=== PATIENT | female | born 1960 | race Caucasian/White ===

== ENCOUNTER 2020-01-16 00:11 | Day surgery (SDC) | payer BC, SELFPAY ==
[2020-01-12 10:51] VITALS: BMI 20.1
--- NOTE | 2020-01-16 06:40 | P.HP_ITS ---
History of Present Illness History of Present Illness Consent: Risks, benefits, and alternatives have been discussed and questions answered. Patient agrees to proceed with procedure. Chief complaint: Sccreening, hx of polyps Narrative: Amee Anderson is a 59 year old W female Referred for screening colonoscopy secondary to history of colonic polyps. Last colonoscopy was 4 years ago which time a cecal adenomatous polyp was removed. Patient is asymptomatic. There is no family history of colon cancer. [facility] Past Medical History Medical History (Updated 01/16/20 @ 06:42 by Pan Herrera MD) History of concussion History of migraine Surgical History Surgical History (Updated 01/16/20 @ 06:43 by Pan Herrera MD) History of cervical discectomy Status post cholecystectomy Status post dilatation and curettage Meds Home Medications and Allergies Home Medications Medication Instructions Recorded Confirmed Type alprazolam 0.25 mg PO BID PRN 01/12/20 01/16/20 History amlodipine 2.5 mg PO DAILY 01/12/20 01/16/20 History calcium carbonate [Calcium 600] 600 mg PO DAILY 01/12/20 01/16/20 History cholecalciferol (vitamin D3) 5,000 unit PO DAILY 01/12/20 01/16/20 History [Vitamin D3] conjugated estrogens [Premarin] 0.625 mg VAGINAL 3XW 01/12/20 01/16/20 History esomeprazole magnesium [Nexium] 20 mg PO DAILY 01/12/20 01/16/20 History estrogens-methyltestosterone 1 tablet PO DAILY 01/12/20 01/16/20 History loratadine 10 mg PO DAILY 01/12/20 01/16/20 History triamcinolone acetonide [Nasacort] 2 spray INTRANASAL DAILY 01/12/20 01/16/20 History vitamin B complex 1 cap PO DAILY 01/12/20 01/16/20 History Allergies Allergy/AdvReac Type Severity Reaction Status Date / Time adhesive Allergy Severe INFECTION Verified 01/16/20 06:24 FROM GLUE cefdinir [From Omnicef] Allergy Intermediate Abdominal Verified 01/16/20 06:24 Pain Cephalosporins AdvReac Intermediate SEVERE Verified 01/16/20 06:24 DIARRHEA codeine AdvReac Intermediate N&V Verified 01/16/20 06:24 erythromycin base AdvReac Intermediate STOMACH Verified 01/16/20 06:24 UPSET Exam Const: Orientation/consciousness: patient oriented x3 Resp: Auscultation: clear to auscultation bilaterally Cardio: Rate: regular rate Rhythm: regular rhythm Heart sounds: no murmurs GI: GI Palp: Yes Soft to palpation, No Tenderness to palpation present (GI), Yes No hepatosplenomegaly present and No Palpable mass present Auscultation: normal bowel sounds Neuro: General: patient oriented x3 and no focal motor deficits Extrem: General: no pedal edema Assessment and Plan Additional Plan screening colonoscopy secondary history of colonic polyps
[2020-01-16] MEDS: LACTATED RINGERS 1,000 ML 150 ML IV CONT (06:41)
--- NOTE | 2020-01-16 07:12 | WPDANESEPPF ---
Anes - Initial Pre Proc Eval Procedure: Operation Date: 01/16/20 07:30 Proposed Procedures p Screening Colonoscopy - Pan Herrera MD Date/Time: 01/16/20 07:12 Surgeon: Pan Herrera MD Pre Op Diagnosis: Sccreening, hx of polyps Patient Data Age: 59 Gender: F Height: 1.57 m Weight: 51 kg Allergies Allergy/AdvReac Type Severity Reaction Status Date / Time adhesive Allergy Severe INFECTION Verified 01/16/20 06:24 FROM GLUE cefdinir [From Omnicef] Allergy Intermediate Abdominal Verified 01/16/20 06:24 Pain Cephalosporins AdvReac Intermediate SEVERE Verified 01/16/20 06:24 DIARRHEA codeine AdvReac Intermediate N&V Verified 01/16/20 06:24 erythromycin base AdvReac Intermediate STOMACH Verified 01/16/20 06:24 UPSET Home Medications Medication Instructions Recorded Confirmed Type alprazolam 0.25 mg PO BID PRN 01/12/20 01/16/20 History amlodipine 2.5 mg PO DAILY 01/12/20 01/16/20 History calcium carbonate [Calcium 600] 600 mg PO DAILY 01/12/20 01/16/20 History cholecalciferol (vitamin D3) 5,000 unit PO DAILY 01/12/20 01/16/20 History [Vitamin D3] conjugated estrogens [Premarin] 0.625 mg VAGINAL 3XW 01/12/20 01/16/20 History esomeprazole magnesium [Nexium] 20 mg PO DAILY 01/12/20 01/16/20 History estrogens-methyltestosterone 1 tablet PO DAILY 01/12/20 01/16/20 History loratadine 10 mg PO DAILY 01/12/20 01/16/20 History triamcinolone acetonide [Nasacort] 2 spray INTRANASAL DAILY 01/12/20 01/16/20 History vitamin B complex 1 cap PO DAILY 01/12/20 01/16/20 History Patient hx anesthesia problems: none Family hx anesthesia problems: none PMFSH Past Medical History Medical History (Updated 01/16/20 @ 07:13 by Bhavik Maier MD) Anxiety Gastroesophageal reflux disease History of concussion History of migraine HTN (hypertension) Surgical History Surgical History (Updated 01/16/20 @ 06:43 by Pan Herrera MD) History of cervical discectomy Status post cholecystectomy Status post dilatation and curettage Anes - Eval Final PreProcedure Day of Procedure 01/16/20 07:12 Patient weight: normal Heart: regular rate and rhythm Lungs: clear to auscultation and normal air movement Airway: Mallampati scale class II Neurological: alert and oriented Last oral intake: >/= 8 hours ASA classification: II Emergent: no Anesthetic plan: proceed Anesthesia type and monitoring: general GIVS Informed Consent: The patient's anesthetic plan and its attendant risks and benefits were discussed with the patient/family/POA. Questions were solicited and answers provided to the satisfaction of the patient/family/POA.
[2020-01-16 07:47] VITALS: BP 87/53; PULSE 73; RESP 30; O2SAT 99
[2020-01-16 07:57] VITALS: BP 86/58; PULSE 66; RESP 20; O2SAT 98
[2020-01-16 08:07] VITALS: BP 130/88; PULSE 71; RESP 21; O2SAT 100
== END 2020-01-16 08:33 | disposition home or self-care (01) ==
PROVIDERS: PCP Internal Medicine; Visit Provider Internal Medicine Gastroenterology
PROC: 0DJD8ZZ Inspection of Lower Intestinal Tract, Via Natural or Artificial Opening Endoscopic (ICD-10-PCS; CPT 45378; principal; 2020-01-16 07:30)
DX: Z12.11 Encounter for screening for malignant neoplasm of colon (principal); K63.5 Polyp of colon; I10 Essential (primary) hypertension; K21.9 Gastro-esophageal reflux disease without esophagitis; F41.9 Anxiety disorder, unspecified
CPT/HCPCS: 45380; 88305; J2704; J7120

== ENCOUNTER 2020-04-01 15:01 | Outpatient (CLI) | payer BC, SELFPAY ==
--- NOTE | ~2020-04-01 | MM_ITS ---
EXAMINATION: MM screening susy BI w quique HISTORY: Screening mammogram TECHNIQUE: Craniocaudal and mediolateral oblique 3-D tomosynthesis images were obtained and synthetic 2-D images were generated. Bilateral rotated lateral CC views. CAD analysis was submitted and interp reted. COMPARISON: 02/27/2019, 01/21/2018, 12/07/2016 bilateral digital screening mammogram examinations BREAST PARENCHYMAL COMPOSITION: The breasts are heterogeneously dense, which may obscure small masses . FINDINGS: There is no evidence of suspicious mass, calcification, or architectural distortion to sugg est malignancy in either breast. There has been no suspicious interval change. IMPRESSION: 1. No mammographic evidence of malignancy. 2. Recommend routine screening mammography in one year. BI-RADS Category 1: Negative Reviewed, dictated and finalized at location A.
== END 2020-04-01 15:02 | disposition home or self-care (01) ==
PROVIDERS: PCP Internal Medicine; Visit Provider Obstetrics & Gynecology
DX: Z12.31 Encounter for screening mammogram for malignant neoplasm of breast (principal)
CPT/HCPCS: 77063; 77067

== ENCOUNTER 2021-01-18 13:59 | Outpatient (CLI) | payer BC, SELFPAY | END 2021-01-18 14:00 | disposition home or self-care (01) | LOC: ANHCOVIDVC 14:00 | PROVIDERS: PCP Internal Medicine | DX: Z23 Encounter for immunization (principal) | CPT/HCPCS: 0001A; 91300 ==

== ENCOUNTER 2021-02-08 13:58 | Outpatient (CLI) | payer BC, SELFPAY | END 2021-02-08 13:59 | disposition home or self-care (01) | LOC: ANHCOVIDVC 13:58 | PROVIDERS: PCP Internal Medicine | DX: Z23 Encounter for immunization (principal) | CPT/HCPCS: 0002A; 91300 ==

== ENCOUNTER 2021-04-04 14:25 | Outpatient (CLI) | payer BC, SELFPAY ==
--- NOTE | ~2021-04-04 | MM_ITS ---
EXAMINATION: MM screening susy BI w quique HISTORY: Screening mammogram TECHNIQUE: Craniocaudal and mediolateral oblique 3-D tomosynthesis images were obtained and synthetic 2-D images were generated. CAD analysis was submitted and interpreted. COMPARISON: 04/01/2020, 02/17/2019, 01/21/2018 bilateral digital screening mammogram examinations BREAST PARENCHYMAL COMPOSITION: The breasts are heterogeneously dense, which may obscure small masses . FINDINGS: There is no evidence of suspicious mass, calcification, or architectural distortion to sugg est malignancy in either breast. There has been no suspicious interval change. IMPRESSION: 1. No mammographic evidence of malignancy. 2. Recommend routine screening mammography in one year. BI-RADS Category 1: Negative Reviewed, dictated and finalized at location A.
== END 2021-04-04 14:26 | disposition home or self-care (01) ==
LOC: ANHIMG 14:28
PROVIDERS: PCP Internal Medicine; Visit Provider Obstetrics & Gynecology
DX: Z12.31 Encounter for screening mammogram for malignant neoplasm of breast (principal)
CPT/HCPCS: 77063; 77067

== ENCOUNTER → 2021-05-10 06:33 | Outpatient (CLI) | payer BC, SELFPAY ==
[2021-05-10 17:12] LABS: SARS-CoV-2 RNA PCR Negative
== END ==
PROVIDERS: PCP Internal Medicine; Visit Provider Internal Medicine
DX: R68.89 Other general symptoms and signs (principal); Z20.822 Contact with and (suspected) exposure to COVID-19
CPT/HCPCS: C9803; U0003; U0005

== ENCOUNTER 2022-04-06 11:47 | Outpatient (CLI) | payer BC, SELFPAY ==
--- NOTE | ~2022-04-06 | MM_ITS ---
EXAMINATION: MM screening susy BI w quique HISTORY: Screening mammogram TECHNIQUE: Craniocaudal and mediolateral oblique 3-D tomosynthesis images were obtained and synthetic 2-D images were generated. CAD analysis was submitted and interpreted. COMPARISON: 03/31/2021, 04/01/2020, 02/17/2019 bilateral screening mammogram examinations BREAST PARENCHYMAL COMPOSITION: The breasts are heterogeneously dense, which may obscure small masses . FINDINGS: There is no evidence of suspicious mass, calcification, or architectural distortion to sugg est malignancy in either breast. There has been no suspicious interval change. IMPRESSION: 1. No mammographic evidence of malignancy. 2. Recommend routine screening mammography in one year. BI-RADS Category 1: Negative Reviewed, dictated and finalized at location A.
== END 2022-04-06 11:48 | disposition home or self-care (01) ==
PROVIDERS: PCP Internal Medicine; Visit Provider Obstetrics & Gynecology
DX: Z12.31 Encounter for screening mammogram for malignant neoplasm of breast (principal)
CPT/HCPCS: 77063; 77067

== ENCOUNTER 2023-04-12 13:58 | Outpatient (CLI) | payer BC, SELFPAY ==
--- NOTE | ~2023-04-12 | MM_ITS ---
EXAMINATION: MM screening susy BI w quique HISTORY: Screening mammogram TECHNIQUE: Craniocaudal and mediolateral oblique 3-D tomosynthesis images were obtained and synthetic 2-D images were generated. Bilateral rotated lateral CC views. CAD analysis was submitted and interp reted. COMPARISON: 04/06/2022, 03/31/2021, 04/01/2020 bilateral screening mammogram examinations BREAST PARENCHYMAL COMPOSITION: The breasts are heterogeneously dense, which may obscure small masses . FINDINGS: There is no evidence of suspicious mass, calcification, or architectural distortion to sugg est malignancy in either breast. There has been no suspicious interval change. IMPRESSION: 1. No mammographic evidence of malignancy. 2. Recommend routine screening mammography in one year. BI-RADS Category 1: Negative Reviewed, dictated and finalized at location A.
== END 2023-04-12 13:59 | disposition home or self-care (01) ==
PROVIDERS: PCP Internal Medicine; Visit Provider Obstetrics & Gynecology
DX: Z12.31 Encounter for screening mammogram for malignant neoplasm of breast (principal)
CPT/HCPCS: 77063; 77067

== ENCOUNTER 2024-04-29 14:14 | Outpatient (CLI) | payer BC, SELFPAY ==
--- NOTE | ~2024-04-29 | MM_ITS ---
EXAMINATION: MM screening susy BI w quique HISTORY: Screening TECHNIQUE: Craniocaudal and mediolateral oblique 3-D tomosynthesis images were obtained and synthetic 2-D images were generated. CAD analysis was submitted and interpreted. COMPARISON: Comparison to multiple prior studies sequentially, with oldest reviewed study dated 01/21. BREAST PARENCHYMAL COMPOSITION: Dense: The breasts are extremely dense, which lowers the sensitivity of mammography. FINDINGS: There is no evidence of suspicious mass, calcification, or architectural distortion to sugg est malignancy in either breast. There has been no suspicious interval change. IMPRESSION: 1. No mammographic evidence of malignancy. 2. Recommend routine screening mammography in one year. BI-RADS Category 1: Negative Reviewed, dictated and finalized at location B.
== END 2024-04-29 14:15 ==
LOC: MICIMG 14:15
PROVIDERS: PCP Internal Medicine; Visit Provider Obstetrics & Gynecology
DX: Z12.31 Encounter for screening mammogram for malignant neoplasm of breast (principal)
CPT/HCPCS: 77063; 77067

== ENCOUNTER 2025-06-08 14:40 | Outpatient (CLI) | payer BC, SELFPAY ==
--- NOTE | ~2025-06-08 | MM_ITS ---
EXAMINATION: MM screening susy BI w quique HISTORY: Screening TECHNIQUE: Craniocaudal and mediolateral oblique 3-D tomosynthesis images were obtained and synthetic 2-D images were generated. CAD analysis was submitted and interpreted. COMPARISON: Comparison to multiple prior studies sequentially, with oldest reviewed study dated 06/2019. BREAST PARENCHYMAL COMPOSITION: Dense: The breasts are heterogeneously dense, which may obscure small masses FINDINGS: There is no evidence of suspicious mass, calcification, or architectural distortion to sugg est malignancy in either breast. There has been no suspicious interval change. IMPRESSION: 1. No mammographic evidence of malignancy. 2. Recommend routine screening mammography in one year. BI-RADS Category 1: Negative Reviewed, dictated and finalized at location B.
--- OUTSIDE RECORDS SUMMARY | 2025-06-08 14:42 | XMS_ITS | Encounter Summary ---
Author Organization [facility] Healthcare Address [address] [place] [address] Care Team Providers Care Zoning Administrator Name Role Phone Iban Mandujano MD Primary Care Provider [phone] Encounter Details Date Type Department Care Team (Late st Contact Info) Description 12/21/2023 Telephone [facility] [place] [facility] [address] [facility] [address] [place] [address] Tiffany Triana MD [address] [place] [address] Social History Tobacco Use Types Packs/Day Years Used Date Smoking Tobacco: Never Smokeless Tobacco: Never Alcohol Use Standard Drinks/Week Comments Not Currently 0 (1 standard drink = 0.6 oz pur e alcohol) [facility] Utilities Answer Date Recorded In the past 12 months has [employer], [employer], oil, or water [employer] threatened to shut off services in your home? No 11/07/2023 Social Connection and Isolat ion Panel [NHANES] Answer Date Recorded In a typical week, how many times do you talk on the phone with family, friends, or neighbors? More than three times a week 11/07/2023 How often do you get togethe r with friends or relatives? More than three times a week 11/07/2023 How often do you attend chur or shinto services? Never 11/07/2023 Do you belong to any clubs o r organizations such as mosque groups, unions, fraternal or athletic groups, or school groups? No 11/07/2023 How often do you attend meet ings of the clubs or organizations you belong to? Never 11/07/2023 Are you , , di vorced, , never , or living with a partner? 11/07/2023 AUDIT-C Answer Date Recorded Q1: How often do you have a drink containing alc ohol? Monthly or less 09/02/2021 Q2: How many drinks containi ng alcohol do you have on a typical day when you are drinking? 1 or 2 09/02/2021 Frequency of Binge Drinking Not on file 08/13 Overall Financial Resource Strain (CARDIA) Answe r Date Recorded How hard is it for you to pa y for the very basics like food, housing, medical care, and heating? Not very hard 11/07/2023 Hunger Vital Sign Answer Date Recorded Within the past 12 months, y ou worried that your food would run out before you got the money to buy more. Never true 11/07/20 23 Within the past 12 months, t he food you bought just didn't last and you didn't have money to get more. Never true 11/07/2023 PRAPARE - Transportation Answer Date Re corded In the past 12 months, has l ack of transportation kept you from medical appointments or from getting medications? No 10/13 In the past 12 months, has l ack of transportation kept you from meetings, work, or from getting things needed for daily living? No 11/07/2023 Housing Stability Vital Sign Answer Royer e Recorded In the last 12 months, was t here a time when you were not able to pay the mortgage or rent on time? No 11/07/2023 In the last 12 months, how many places have you lived? 1 11/07/2023 In the last 12 months, was t here a time when you did not have a steady place to sleep or slept in a correction (including now)? No 11/07/2023 Personal Safety Answer Date Recorded Have you ever been in or are you currently in a harmful physical or emotional relationship or is someone making you feel afraid or unsafe? 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 Author CCM Chronic Pain Care Plan Chronic Care Management Worsening( 11:22 AM STONE DRILLER HELPER) Dionna Rodgers RN Note: Problem: Chronic Pain Goals: 1. Minimize further functional decline 2. Maximize quality of life 3. Control pain Strategies: - Activity/exercise program recommendation - Conservative stepwise pain medicine strategy with multi-disciplinary approach - Recommend healthy lifestyle strategies and compensatory methods as needed documented as of this encounter Visit Diagnoses Not on filedocumented in this encounter Care Teams Zoning Administrator Relationship Specialty Start Date End Date Iban Mandujano MD PCP - General 01/04/17 documented as of this encounter
--- OUTSIDE RECORDS SUMMARY | 2025-06-08 14:42 | XMS_ITS | Clinical Summary ---
Author Organization [facility] Address [address] [place] [address] Care Team Providers Care Supervisor Electronics Testing Name Role Phone Iban Mandujano MD Primary Care Provider [phone] Source Comments [facility] Affiliates and Associated Physician Practices is amultiple site organization consisting of ambulatory clinics and hospital sitesin [place], [place], [place] and [place]. This disclosure is being madepursuant to the Care Everywhere program and may not contain all information available regarding this patient. Last updated 18.[facility] Social History Tobacco Use Types Packs/Day Years Used Date Smoking Tobacco: Never Assessed Comments Unknown Sex and Gender Information Value Date Recorded Sex Assigned at Not on file Legal Sex Female 2:06 PM CDT Gender Identity Not on file Sexual Orientation Not on file Plan of Treatment Health Maintenance Due Date Last Done Comments COLOGUARD (AGES 45-75) - COL ON CA SCREENING 1962 COLON MONITORING 1962 COLONOSCOPY - COLON CA SCREENING 1962 CT COLONOGRAPHY - COLON CA SCREENING 1962 Colorectal Cancer Screening 1962 FIT - COLON CA SCREENING 1962 FLEX SIG - COLON CA SCREENING 1962 LIPID TESTING 1962 MAMMOGRAM 1962 HIV SCREENING 1977 HEPATITIS C SCREENING 05/17/1980 DTAP/TDAP/TD VACCINES (1 - Tdap) 1981 PAP SMEAR 1983 PNEUMOCOCCAL VACCINE 50+ (1 of 1 - PCV) 2012 ZOSTER VACCINE (1 of 2) 2012 COVID-19 VACCINE (1 - 2023-2 5 season) 2024 DEPRESSION SCREENING 11/12/2024 INFLUENZA VACCINE (#1) 2025 Respiratory Syncytial Virus (RSV) Vaccine Pt: or over 60 yrs (1 - 1-dose 75+ series) 2037 HEPATITIS B VACCINE Aged Out No longe r eligible based on patient's age to complete this topic HIB VACCINE Aged Out No longer eligi ble based on patient's age to complete this topic HPV VACCINE Aged Out No longer eligi ble based on patient's age to complete this topic MENINGOCOCCAL (Group B) VACC INE SHARED DECISION-MAKING Aged Out No longer eligibl e based on patient's age to complete this topic MENINGOCOCCAL GROUPS A/C/Y/W VACCINE Aged Out No longer eligible b ased on patient's age to complete this topic Insurance [facility] Address: [facility] [id number] [place] [phone] [employer] Care Teams Supervisor Electronics Testing Relationship Specialty Start Date End Date Iban Mandujano MD PCP - General 01/19/20
--- OUTSIDE RECORDS SUMMARY | 2025-06-08 14:42 | XMS_ITS | Referral Summary ---
Author Organization [facility] al Address [address] [place] [address] Care Team Providers Care Lathe Winder Name Role Phone Iban Mandujano MD Primary Care Provider [phone] Encounters Date Type Department Care Team Description 05/29/2025 Orders Only [facility] [address] [place] [address] [address] [facility] [address] [place] [id number] Iban Mandujano MD 03/24/2025 1:00 PM CDT Office Visit [facility] [address] [facility] [address] [place] [address] Pola Garcia DO Lumbar pain (Primary Dx); Spondylosis of lumbar spine; Intervertebral disc disorder with radiculopathy of lumbar region 03/21/2025 8:07 AM CDT - 03/21/2025 11:59 PM CDT Hospital Encounter [facility] [address] [place] [phone] Spondylosis of lumbar spine; Lumbar pain; Intervertebral disc disorder with radiculopathy of lumbar region Discharge Disposition: Discharge to home or self care 03/21/2025 9:16 AM CDT - 03/21/2025 11:59 PM CDT Hospital Encounter [facility] [address] [place] [phone] Spondylosis of lumbar spine; Lumbar pain; Intervertebral disc disorder with radiculopathy of lumbar region Discharge Disposition: Discharge to home or self care 03/20/2025 Orders Only [facility] [address] [facility] [address] [place] [address] Pola Garcia DO Spondylosis of lumbar spine (Primary Dx); Lumbar pain; Intervertebral disc disorder with radiculopathy of lumbar region from Last 3 Months Allergies Active Allergy Reactions Criticality Noted Date Comments Adhesive Other (See comments) Low 05/11/2021 Resulted in an infection Adhesive glue Codeine Nausea & Vomiting Low 07/26/2010 Erythromycin Stomach upset Low 07/26/2010 Escitalopram Oxalate Anxiety Low 09/29/2014 Cefdinir Stomach upset Low 07/26/[address] (NexIUM) 20 mg capsuleIndications :Treatment of Non-Bleeding Gastric Disorder Take 1 capsule (20 mg total) by mouth daily before breakfast 10/05/20 14 Active loratadine (CLARITIN) 10 mg tabletIndications: Allergic Rhinitis Take 1 tablet (10 mg total) by mouth every morning Active PREMARIN vaginal creamIndications:A trophy of Vulva Insert 1 g into the vagina Three times weekly 04/22/20 18 Active triamcinolone (NASACORT) 55 mcg nasal inhalerIndications :Allergic Rhinitis Administer 1 spray into each nostril early education teacher before breakfast Active Saccharomyces boulardii (PROBIOTIC, S.BOULARDII,) 250 mg capsuleIndications :supplement Take 1 capsule (250 mg total) by mouth 3 (three) times a day Active acetaminophen (TYLENOL EXTRA STRENGTH) 500 mg tablet Take 2 tablets (1,000 mg total) by mouth as needed for pain Active estrogens-methylTE STOSTERone (EEMT,COVARYX) 1.25-2.5 mg per tabletIndications: Vasomotor Symptoms associated with Menopause Take 1 tablet by mouth nightly 1 11/28/19 19 Active desoximetasone (TOPICORT) 0.05 % cream Apply topically 2 (two) times a day as needed for irritation 60 g 2 09/11/20 22 Active vitamin B complex capsuleIndications :Vitamin Deficiency Prevention Take 1 capsule by mouth every morning Active cholecalciferol (VITAMIN D-3) 5,000 unit capsuleIndications :supplement Take 1 capsule (5,000 Units total) by mouth every morning Active calcium carbonate (TUMS) 500 mg (200 mg elemental calcium) chewable tabletIndications: Post-Menopausal Osteoporosis Prevention,hypocal cemia Take 2 tablet/chew tab (1,000 mg total) by mouth 2 (two) times a day Active ascorbic acid (ascorbic acid with stephen hips) 500 mg tablet,chewableInd ications:supplemen t Take 1 tablet/chew tab (500 mg total) by mouth early education teacher before breakfast Active traMADoL (ULTRAM) 50 mg tablet Take 1 tablet (50 mg total) by mouth every 6 (six) hours 28 tablet 1 06/03/20 24 Active Additional Information Patient not taking.Reported on 03/24/2025 ondansetron ODT (ZOFRAN-ODT) 4 mg disintegrating tablet Take 1 tablet (4 mg total) by mouth every 8 (eight) hours as needed for nausea or vomiting 20 tablet 1 06/03/20 24 Active senna-docusate (PERICOLACE) 8.6-50 mg Take 1 tablet by mouth daily 30 tablet 2 06/03/20 24 Active triamcinolone (KENALOG) 0.1 % ointment APPLY TO CHEST TWICE DAILY FOR 14 DAYS THEN NEEDED. 07/29/20 24 Active amLODIPine (NORVASC) 2.5 mg tablet TAKE 1 TABLET BY MOUTH EVERY DAY 90 tablet 2 11/06/20 24 Active ALPRAZolam (XANAX) 0.25 mg tablet TAKE 1 TABLET BY MOUTH EVERY 8 HOURS NEEDED FOR ANXIETY 30 tablet 1 04/28/20 25 Active Active Problems Problem Noted Date Diagnosed Date Weight loss 10/07/2024 History of colon polyps 09/03/2024 Encounter for screening colonoscopy 09/03/2024 Lumbar spondylolysis 06/03/2024 Intervertebral disc disorder with radiculopathy of lumbar region 06/03/2024 Sensorineural hearing loss (SNHL) of both ears 0 05/23/2024 Bilateral impacted cerumen 05/23/2024 Lumbar pain 11/05/2023 HTN (hypertension) 11/05/2023 Assessment & Plan (02/11/2025 12:38 PM CDT): Bp is at target, will continue medication for target directed therapy GERD (gastroesophageal reflux disease) 3 Assessment & Plan (02/11/2025 12:39 PM CDT): stable Back pain with radiculopathy 11/05/2023 Acute bronchitis 05/11/2021 Assessment & Plan (05/13/2021 8:37 AM CDT): Advised to take medication (amoxicillin) as directed and informed can use Coricidin as directed as needed for symptom relief. Instructed to increase clear liquids, rest, and vitamin C in diet. Advised to sleep with head elevated and use a cool mist vaporizer and Vicks VapoRub at bedtime for cough and congestion. Recommended follow-up with PCP if symptoms worsen, don't improve, or new symptoms develop. Viral upper respiratory tract infection 05/11/20 21 Assessment & Plan (05/13/2021 8:38 AM CDT): Informed can use Coricidin as directed as needed for symptom relief. Instructed to increase clear liquids, rest, and vitamin C in diet. Advised to sleep with head elevated and use a cool mist vaporizer and Vicks VapoRub at bedtime for cough and congestion. Recommended follow-up with PCP if symptoms worsen, don't improve, or new symptoms develop. Thumb pain, right 05/11/2021 Assessment & Plan (05/13/2021 8:37 AM CDT): Ordered right hand xray. Advised can use Tylenol or ibuprofen as directed as needed or can alternative between the two for pain. Recommended follow-up with PCP if symptoms worsen, don't improve, or new symptoms develop. Encounter for colonoscopy following colon polyp removal 06/11/2020 Overview (06/11/2020): Added automatically from request for surgery [id number] Postconcussion syndrome 03/01/2020 Late effect of head trauma, cognitive deficits 0 03/01/2020 Benign colon polyp 01/21/2020 Overview (01/21/2020): Added automatically from request for surgery [id number] Spondylosis of lumbar spine 05/23/2018 Skin neoplasm 12/11/2017 Osteoarthritis of cervical spine 02/19/2017 Cervical pain (neck) 02/14/2017 Assessment & Plan (02/11/2025 12:38 PM CDT): To see neurosurgery. 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 09/28/2015 BMI 20.0-20.9, adult 10/05/2014 Shortness of breath 09/15/2014 Dizziness 09/15/2014 Chest pain 09/15/2014 Immunizations Immunization Administration Dates Next Due COVID-19 mRNA (BIScience) 0.3 m L (30 mcg) vaccine (12 years and up) 10/13/2023 ZOSTER Recombinant 09/24/2022,05/27/2022 Social History Tobacco Use Types Packs/Day Years Used Date Smoking Tobacco: Never Smokeless Tobacco: Never Tobacco Cessation:Counseling Given: Not Answered Alcohol Use Standard Drinks/Week Comments Not Currently 0 (1 standard drink = 0.6 oz pur e alcohol) [employer] Answer Date Recorded In the past 12 months has [employer] electric, gas, oil, or water company threatened to shut off services in your [...] 11/07/2023 How often do you attend chur ch or moravian services? Never 11/07/2023 Do you belong to any clubs o r organizations such as episcopal groups, unions, fraternal or athletic groups, or school groups? No 11/07/2023 How often do you attend meet ings of the clubs or organizations you belong to? Never 11/07/2023 Are you , , di vorced, , never , or living with a partner? 11/07/2023 AUDIT-C Answer Date Recorded Q1: How often do you have a drink containing alc ohol? Monthly or less 12/11/2024 Q2: How many drinks containi ng alcohol do you have on a typical day when you are drinking? 1 or 2 12/11/2024 Q3: How often do you have si x or more drinks on one occasion? Never 12/11/2024 Overall Financial Resource Strain (CARDIA) Answe r [...] place to sleep or slept in a senior care (including now)? No 11/07/2023 Personal Safety Answer Date Recorded Have you ever been in or are you currently in a harmful physical or emotional relationship or is someone making you feel afraid or unsafe? Denies 12/11/2024 Comments No Sex and Gender Information Value Date Recorded Sex Assigned at Not on file Legal Sex Female 3:27 AM DEVELOPMENT ADMINISTRATOR Gender Identity Female 08/23/2021 8:51 AM CDT Sexual Orientation Not on file Last Filed Vital Signs Vital Sign Reading Time Taken Comments Blood Pressure 130/86 02/11/2025 11:52 AM CDT Pulse 80 02/11/2025 11:52 AM CDT Temperature 36.1 C (97 F) 12/11/2024 7:00 AM DEVELOPMENT ADMINISTRATOR Respiratory Rate 25 12/11/2024 8:40 AM DEVELOPMENT ADMINISTRATOR Oxygen Saturation 99% 12/11/2024 8:40 AM DEVELOPMENT ADMINISTRATOR Inhaled Oxygen Concentration - - Weight 54 kg (119 lb) 03/24/2025 1:02 PM CDT Height 157.5 cm (5' 2) 03/24/2025 1:02 PM CDT Body Mass Index 21.77 03/24/2025 1:02 PM CDT Plan of Treatment Not on file Goals Goal Patient Goal Type Associated Problems Recent Progress Patient-Stated? Author CCM Chronic Pain Care Plan Chronic Care Management Worsening( 11:22 AM DEVELOPMENT ADMINISTRATOR) Dionna Rodgers RN Note: Problem: Chronic Pain Goals: 1. Minimize further functional decline 2. Maximize quality of life 3. Control pain Strategies: - Activity/exercise program recommendation - Conservative stepwise pain medicine strategy with multi-disciplinary approach - Recommend healthy lifestyle strategies and compensatory methods as needed Medical Devices Implanted Type Area Control Systems Developer Device Identifier Shelf Expiration Date Model / Serial / Lot Orthopedic Hardware-Cervic al Hardware Spine Cervical Procedures Procedure Name Priority Date/Time Associated Diagnosis Comments SCAN - RADIOLOGY/IMAGING 05/29/2025 2:[address] LUMBAR SPINE WO CONTRAST Schedule RADHA, Read RADHA (Appt Today, Awaiting Results) 03/21/2025 9:24 AM CDT Spondylosis of lumbar spine Lumbar pain Intervertebral disc disorder with radiculopathy of lumbar region MRI LUMBAR SPINE WO CONTRAST Schedule RADHA, Read RDAHA (Appt Today, Awaiting Results) 03/21/2025 8:56 AM CDT Spondylosis of lumbar spine Lumbar pain Intervertebral disc disorder with radiculopathy of lumbar region COLONOSCOPY 12/11/2024 7:48 AM DEVELOPMENT ADMINISTRATOR from Last 3 Months or Most Recently Relevant to Health Maintenance Results * SCAN - RADIOLOGY/IMAGING (05/29/2025 2:01 PM CDT) Anatomical Region Laterality Modality Other Iban Mandujano MD Final Result * CT Lumbar Spine WO Contrast (03/21/2025 9:24 AM CDT) Anatomical Region Laterality Modality Spine N/A Computed Tomogra phy 03/21/2025 10:3 5 AM CDT Impressions 03/21/2025 12:12 PM CDT 1. Multilevel degenerative changes of the spine as detailed above. No high-grade spinal canal stenosis. 2. Redemonstrated severe right neural foraminal stenosis and right lateral recess stenosis at L3-L4. Dictated by: Giovany Bull D.O. The radiology attending physician has personally reviewed this study, and had reviewed and/or edited this written report and agrees with it. Electronically signed by: Aric Wang M.D. Narrative 03/21/2025 12:12 PM CDT EXAMINATION: CT of the lumbar spine without contrast HISTORY: Low back pain TECHNIQUE: CT of the lumbar spine was performed according to the standard protocol without intravenous contrast. COMPARISON: MRI lumbar spine 03/21/2025, MRI lumbar spine 07/08/2024. FINDINGS: Transitional anatomy with partial sacralization of L5 on the right. Mild dextroscoliosis of the lumbar spine.. There is no acute fracture. The vertebral bodies are normal in height without compression fractures. The intervertebral disk heights are normal. There is no soft tissue abnormality. Atherosclerotic calcifications of the abdominal aorta.. L1-L2: Mild circumferential disc bulge. There is mild bilateral facet arthropathy. There is mild left neuroforaminal stenosis. There is no spinal canal stenosis. L2-L3: Mild circumferential disc bulge There is moderate bilateral facet arthropathy. There is mild bilateral neuroforaminal stenosis. There is no spinal canal stenosis. L3-L4: Circumferential disc bulge superimposed right lateral central disc protrusion. There is moderate bilateral facet arthropathy. There is severe right neural foraminal and recess stenosis and moderate left neuroforaminal stenosis. There is no spinal canal stenosis. L4-L5: Mild circumferential disc bulge There is mild right and moderate left facet arthropathy. There is moderate right and mild left neuroforaminal stenosis. There is no spinal canal stenosis. L5-S1: The disc is normal in configuration. There is no facet arthropathy. There is no neuroforaminal stenosis. There is no spinal canal stenosis. Procedure Note Aric Wang MD PhD - 03/21/2025 EXAMINATION: CT of the lumbar spine without contrast HISTORY: Low back pain TECHNIQUE: CT of the lumbar spine was performed according to the standard protocol without intravenous contrast. COMPARISON: MRI lumbar spine 03/21/2025, MRI lumbar spine 07/08/2024. FINDINGS: Transitional anatomy with partial sacralization of L5 on the right. Mild dextroscoliosis of the lumbar spine.. There is no acute fracture. The vertebral bodies are normal in height without compression fractures. The intervertebral disk heights are normal. There is no soft tissue abnormality. Atherosclerotic calcifications of the abdominal aorta.. L1-L2: Mild circumferential disc bulge. There is mild bilateral facet arthropathy. There is mild left neuroforaminal stenosis. There is no spinal canal stenosis. L2-L3: Mild circumferential disc bulge There is moderate bilateral facet arthropathy. There is mild bilateral neuroforaminal stenosis. There is no spinal canal stenosis. L3-L4: Circumferential disc bulge superimposed right lateral central disc protrusion. There is moderate bilateral facet arthropathy. There is severe right neural foraminal and recess stenosis and moderate left neuroforaminal stenosis. There is no spinal canal stenosis. L4-L5: Mild circumferential disc bulge There is mild right and moderate left facet arthropathy. There is moderate right and mild left neuroforaminal stenosis. There is no spinal canal stenosis. L5-S1: The disc is normal in configuration. There is no facet arthropathy. There is no neuroforaminal stenosis. There is no spinal canal stenosis. IMPRESSION: 1. Multilevel degenerative changes of the spine as detailed above. No high-grade spinal canal stenosis. 2. Redemonstrated severe right neural foraminal stenosis and right lateral recess stenosis at L3-L4. Dictated by: Giovany Bull D.O. The radiology attending physician has personally reviewed this study, and had reviewed and/or edited this written report and agrees with it. Electronically signed by: Aric Wang M.D. Pola Garcia DO IMG CT PROCEDURES Final Result * MRI Lumbar Spine WO Contrast (03/21/2025 8:56 AM CDT) Anatomical Region Laterality Modality Spine N/A Magnetic Resonan ce 03/21/2025 9:44 AM CDT Impressions 03/21/2025 11:12 AM CDT 1. Unchanged focal soft tissue mass in the right subarticular region of L3-L4 with interval decrease in edema surrounding the right neural foramen and paraspinal muscles. Findings are likely due to prior disc protrusion and inflammatory changes. However, evaluation is limited due to lack of IV contrast. 2. Multilevel degenerative changes of the spine as detailed above. Dictated by: Giovany Bull D.O. The radiology attending physician has personally reviewed this study, and had reviewed and/or edited this written report and agrees with it. Electronically signed by: Aric Wang M.D. Narrative 03/21/2025 11:12 AM CDT EXAMINATION: Magnetic resonance imaging (MRI) of the lumbar spine without contrast HISTORY: Low back pain TECHNIQUE: Multiplanar multi-weighted MRI of the lumbar spine was performed without intravenous contrast using the standard protocol. COMPARISON: Lumbar MRI 07/08/2024, MRI . FINDINGS: Transitional anatomy with partial sacralization of the right L5. Mild dextroscoliosis of the lumbar spine. Edema of the opposing endplates of L3-L4 without involvement of the intervertebral disc space, likely degenerative.. There are no compression fractures. The conus medullaris terminates at the level of L1-L2. The distal spinal cord signal intensity is normal. Intervertebral disks have normal height and signal intensity. Limited views of the abdomen and pelvis show no soft tissue abnormality. The aorta is normal. L1-L2: Mild circumferential disc bulge. There is mild bilateral facet arthropathy. There is mild left neuroforaminal stenosis. There is no spinal canal stenosis. L2-L3: Mild circumferential disc bulge There is moderate bilateral facet arthropathy. There is mild bilateral neuroforaminal stenosis. There is no spinal canal stenosis. L3-L4: Circumferential disc bulge superimposed right lateral central disc protrusion. Unchanged focal soft tissue mass in the right subarticular region with interval decrease in edema around the right neural foramen and paraspinal muscles. There is moderate bilateral facet arthropathy. There is severe right neural foraminal and recess stenosis and moderate left neuroforaminal stenosis. There is no spinal canal stenosis. L4-L5: Mild circumferential disc bulge There is mild right and moderate left facet arthropathy. There is moderate right and mild left neuroforaminal stenosis. There is no spinal canal stenosis. L5-S1: The disc is normal in configuration. There is no facet arthropathy. There is no neuroforaminal stenosis. There is no spinal canal stenosis. Procedure Note Aric Wang MD PhD - 03/21/2025 EXAMINATION: Magnetic resonance imaging (MRI) of the lumbar spine without contrast HISTORY: Low back pain TECHNIQUE: Multiplanar multi-weighted MRI of the lumbar spine was performed without intravenous contrast using the standard protocol. COMPARISON: Lumbar MRI 07/08/2024, MRI . FINDINGS: Transitional anatomy with partial sacralization of the right L5. Mild dextroscoliosis of the lumbar spine. Edema of the opposing endplates of L3-L4 without involvement of the intervertebral disc space, likely degenerative.. There are no compression fractures. The conus medullaris terminates at the level of L1-L2. The distal spinal cord signal intensity is normal. Intervertebral disks have normal height and signal intensity. Limited views of the abdomen and pelvis show no soft tissue abnormality. The aorta is normal. L1-L2: Mild circumferential disc bulge. There is mild bilateral facet arthropathy. There is mild left neuroforaminal stenosis. There is no spinal canal stenosis. L2-L3: Mild circumferential disc bulge There is moderate bilateral facet arthropathy. There is mild bilateral neuroforaminal stenosis. There is no spinal canal stenosis. L3-L4: Circumferential disc bulge superimposed right lateral central disc protrusion. Unchanged focal soft tissue mass in the right subarticular region with interval decrease in edema around the right neural foramen and paraspinal muscles. There is moderate bilateral facet arthropathy. There is severe right neural foraminal and recess stenosis and moderate left neuroforaminal stenosis. There is no spinal canal stenosis. L4-L5: Mild circumferential disc bulge There is mild right and moderate left facet arthropathy. There is moderate right and mild left neuroforaminal stenosis. There is no spinal canal stenosis. L5-S1: The disc is normal in configuration. There is no facet arthropathy. There is no neuroforaminal stenosis. There is no spinal canal stenosis. IMPRESSION: 1. Unchanged focal soft tissue mass in the right subarticular region of L3-L4 with interval decrease in edema surrounding the right neural foramen and paraspinal muscles. Findings are likely due to prior disc protrusion and inflammatory changes. However, evaluation is limited due to lack of IV contrast. 2. Multilevel degenerative changes of the spine as detailed above. Dictated by: Giovany Bull D.O. The radiology attending physician has personally reviewed this study, and had reviewed and/or edited this written report and agrees with it. Electronically signed by: Aric Wang M.D. Pola Garcia [place] [facility] [place]ED[place] Final Result * Colonoscopy (12/11/2024 7:48 AM DEVELOPMENT ADMINISTRATOR) Anatomical Region Laterality Modality Other Narrative Procedure Note Rip Morelos MD - 12/11/2024 7:48 AM CST ENDOSCOPY LAB Patient Name: Amee Okeefe Procedure Date: 12/11/2024 7:48 AM Date of : 1960 Admit Type: Outpatient Age: 64 Gender: Female Attending MD: Rip Morelos M.D. Room: [facility] ENDOSCOPY ROOM 04 Note Status: Finalized Procedure: Colonoscopy Indications: Surveillance: Personal history of adenomatouspolyps on last colonoscopy 3 years ago; Colonoscopy04/30/20 with 20mm cecal polyp s/p piecemeal EMR with pathololgy demonstrating tubular adenoma with high grade dysplasia. Followup colonoscopy 07/21/20 and 08/2021 with no residual adenoma at EMR scar site. Here for surveillance. Providers: Rip Morelos M.D. Referring MD: Iban Mandujano M.D. Medicines: Monitored Anesthesia Care Complications: No immediate complications. Estimated blood loss:None. Estimated Blood Loss: Estimated blood loss: none. Procedure: Pre-Anesthesia Assessment: - The risks and benefits of the procedure and the sedation options and risks were discussed with the patient. All questions were answered and informed consent was obtained. - Immediately prior to administration ofmedications, the patient was re-assessed for adequacy to receive sedatives. - The anesthesia plan was to use monitoredanesthesia care (MAC). The benefits, risks and alternatives of theprocedure and sedation were discussed and informed consentwas obtained. All questions were answered. Please referto the signed informed consent document in the medical record. The scope was passed under direct vision.The [id number] was introduced through the anusand advanced to the cecum, identified by appendiceal orifice and ileocecal valve. The colonoscopy was performed without difficulty. The patient tolerated the procedure well. The quality of the bowel preparation was evaluated using the BBPS (BostonBowel Preparation Scale) with scores of: Right Colon = 3 (entire mucosa seen well with no residual staining, small fragments of stool or opaque liquid),Transverse Colon = 3 (entire mucosa seen well with no residual staining, small fragments of stool or opaqueliquid) and Left Colon = 3 (entire mucosa seen well with no residual staining, small fragments of stool oropaque liquid). The total BBPS score equals 9. The qualityof the bowel preparation was good. Bowel prep was administered using a split dose. Findings: The perianal and digital rectal examinations were normal. A 15 mm post mucosectomy scar was found in the cecum. The scar tissue was healthy in appearance. There was no evidence of the previouspolyp. Biopsies were taken with a cold forceps for histology. A 2 to 3 mm polyp was found in the cecum. The polyp was semi-sessile. The polyp was removed with a cold biopsy forceps. Resection and retrieval were complete. A 4 mm polyp was found in the transverse colon. The polyp was semi-sessile. The polyp was removed with a cold biopsy forceps. Resection and retrieval were complete. Internal hemorrhoids were found during retroflexion. The hemorrhoids were mild. Impression: - Post mucosectomy scar in the cecum withoutevidence of recurrence/residual. Biopsied. - One 2 to 3 mm polyp in the cecum, removed with a cold biopsy forceps. Resected and retrieved. - One 4 mm polyp in the transverse colon, removedwith a cold biopsy forceps. Resected and retrieved. - Internal hemorrhoids. Recommendation: - Observe patient's clinical course followingtoday's Colonoscopy. - Await pathology results. - Repeat colonoscopy in 5 years. - Resume home medications and diet. - Return to primary care physician as previously scheduled. - In the unusual situation that you developabdominal pain, bleeding or other significant problems in the days following this procedure please call my officeat [phone] ([phone]) to speak to my nurses. After hours and evenings please call [phone] speak to the GI fellow electronic gluer. Please tell themthat Dr. Morelos did your procedure and that your were instructed to have the fellow call me or thephysician covering for me to discuss the management of your condition. If you have an urgent problem, please goto the nearest emergency room and have the ER doctorcall my office during the day or [facility] transfer ([phone]) center after hours and weekends to arrange admission or transfer to our facility. - Call my nurse Lindsay Burgess RN in the GI office at [phone] for your final pathology results in 7 days. Attending Participation: I personally performed the entire procedure. Electronically Signed By: Rip Morelos M.D. Rip Morelos M.D. 12/11/2024 8:10:07 AM Number of Addenda: 0 Note Initiated On: 12/11/2024 7:48 AM Rip Morelos MD ENDOSCOPY PROCEDURES Final Result from Last 3 Months or Most Recently Relevant to Health Maintenance Insurance [employer] [place] [employer] [place] Jennifer [place] [phone] [employer] [place] [employer] [place] Advance Directives For more information, please contact: [phone] * Full Code (Latest Code Status on File) Date Activated Date Inactivated Comments 12/11/2024 6:46 AM 12/11/2024 1:12 PM * Full Code Date Activated Date Inactivated Comments 10/14/2024 8:20 AM 10/14/2024 2:38 PM * Full Code Date Activated Date Inactivated Comments 11/05/2023 8:05 AM 11/06/2023 8:27 PM * Full Code Date Activated Date Inactivated Comments 09/02/2021 7:50 AM 09/02/2021 2:51 PM * Full Code Date Activated Date Inactivated Comments 07/21/2020 7:59 AM 07/21/2020 1:44 PM Care Teams Lathe Winder Relationship Specialty Start Date End Date Iban Mandujano MD PCP - General 01/04/17
--- OUTSIDE RECORDS SUMMARY | 2025-06-08 14:42 | XMS_ITS | Clinical Summary ---
Author Organization [facility] al Address [address] [place] [address] Care Team Providers Care Svp Monetization Name Role Phone Iban Mandujano MD Primary Care Provider [phone] Allergies Active Allergy Reactions Criticality Noted Date [...] Rhinitis Administer 1 spray into each nostril entertainment musician before breakfast Active Saccharomyces boulardii (PROBIOTIC, S.BOULARDII,) [...] tablet/chew tab (500 mg total) by mouth entertainment musician before breakfast Active traMADoL (ULTRAM) 50 mg [...] target directed therapy GERD (gastroesophageal reflux disease) Assessment & Plan (02/11/2025 12:39 PM CDT): [...] (06/11/2020): Added automatically from request for surgery [id number] Postconcussion syndrome 03/01/2020 Late effect of head trauma, cognitive deficits 0 03/01/2020 Benign colon polyp 01/21/2020 Overview (01/21/2020): Added automatically from request for surgery [id number] Spondylosis of lumbar spine 05/23/2018 Skin neoplasm 12/11/2017 Osteoarthritis of cervical spine 02/19/2017 Cervical pain (neck) 02/14/2017 Assessment & Plan (02/11/2025 12:38 PM CDT): To see neurosurgery. 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 09/28/2015 BMI 20.0-20.9, adult 10/05/2014 Shortness of breath 09/15/2014 Dizziness 09/15/2014 Chest pain 09/15/2014 Encounters Date Type Department Care Team Description 05/29/2025 Orders Only [facility] [address] [facility] [facility] [address] [address] Iban Mandujano MD 03/24/2025 1:00 PM CDT Office Visit [facility] Neurosurgery [address] [facility] [address] [place] [address] Pola Garcia DO Lumbar pain (Primary Dx); Spondylosis of lumbar spine; Intervertebral disc disorder with radiculopathy of lumbar region 03/21/2025 9:16 AM CDT - 03/21/2025 11:59 PM CDT Hospital Encounter [facility] [address] [place] [address] Spondylosis of lumbar spine; Lumbar pain; Intervertebral disc disorder with radiculopathy of lumbar region Discharge Disposition: Discharge to home or self care 03/21/2025 8:07 AM CDT - 03/21/2025 11:59 PM CDT Hospital Encounter [facility] [address] [place] [address] Spondylosis of lumbar spine; Lumbar pain; Intervertebral disc disorder with radiculopathy of lumbar region Discharge Disposition: Discharge to home or self care 03/20/2025 Orders Only [facility] Neurosurgery [address] [facility] [address] [place] [address] Pola Garcia DO Spondylosis of lumbar spine (Primary Dx); Lumbar pain; Intervertebral disc disorder with radiculopathy of lumbar region from Last 3 Months Immunizations Immunization Administration Dates Next Due COVID-19 mRNA ([employer]) 0.3 m L (30 mcg) vaccine (12 years and up) 10/13/2023 ZOSTER Recombinant 09/24/2022,05/27/2022 Surgical History Surgery Date Site/Laterality Comments BACK SURGERY 06/03/2024 L3-4 [place] VAGINAL HYSTERECTOMY UTER US 250 GM/< Vaginal Hysterectomy - (Added by TW Conv) WA CHOLECYSTECTOMY Cholecystectomy - (Added by TW Conv) COLONOSCOPY ESOPHAGOGASTRODUODENOSCOPY HYSTERECTOMY 2017 SPINE SURGERY Cervical age 41 2001 UPPER GASTROINTESTINAL ENDOSCOPY Medical History Medical History Date Comments Personal history of other malignant neoplasm of skin History of squamous cell carcinoma of skin - (Added by TW Conv) Malignant neoplasm of skin Skin cancer - (Added by TW Conv) Colon polyp GERD (gastroesophageal reflu x disease) Hypertension Anxiety Arthritis 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 Brain concussion May 26 2019 PONV (postoperative nausea a nd vomiting) nausea after colonoscopy Allergic rhinitis Family History Medical History Relation Name Comments Cancer Father Sav Anthony Hypertension Father Sav Anthony Family h istory of hypertension - (Added by TW Conv) Squamous cell carcinoma Father Sav Anthony Family history of squamous cell carcinoma - (Added by TW Conv) Clotting disorder Maternal Grandmother Kary Chin Stroke Maternal Grandmother Kary Chin Arthritis Mother Anu Anthony Cancer Mother Anu Anthony Hypertension Mother Anu Ha Pendadalid Family history of hypertension - (Added by TW Conv) Melanoma Mother Anu Anthony Family history of melanoma - (Added by TW Conv) Anesthesia problems Neg Hx Relation Name Status Comments Father Sav Anthony Maternal Grandmother Kary Chin Mother Anu Anthony Social History Tobacco Use Types Packs/Day Years Used Date Smoking Tobacco: Never Smokeless Tobacco: Never Tobacco Cessation:Counseling Given: Not Answered Alcohol Use Standard Drinks/Week Comments Not Currently 0 (1 standard drink = 0.6 oz pur e alcohol) [facility] Utilities Answer Date Recorded In the past 12 months has th e electric, gas, oil, or water company threatened [...] week 11/07/2023 How often do you attend [facility] or baptism services? Never 11/07/2023 Do you belong to any clubs o r organizations such as taoist groups, unions, fraternal or athletic groups, or [...] place to sleep or slept in a group home (including now)? No 11/07/2023 Personal Safety Answer Date Recorded Have you ever been in or are you currently in a harmful physical or emotional relationship or is someone making you feel afraid or unsafe? Denies 12/11/2024 Comments No Sex and Gender Information Value Date Recorded Sex Assigned at Not on file Legal Sex Female 3:27 AM RECREATION SUPERINTENDENT Gender Identity Female 08/23/2021 8:51 AM CDT Sexual Orientation Not on file Obstetrics History Last Filed Vital Signs Vital Sign Reading Time Taken Comments Blood Pressure 130/86 02/11/2025 11:52 AM CDT Pulse 80 02/11/2025 11:52 AM CDT Temperature 36.1 C (97 F) 12/11/2024 7:00 AM RECREATION SUPERINTENDENT Respiratory Rate 25 12/11/2024 8:40 AM RECREATION SUPERINTENDENT Oxygen Saturation 99% 12/11/2024 8:40 AM RECREATION SUPERINTENDENT Inhaled Oxygen Concentration - - Weight 54 kg (119 lb) 03/24/2025 1:02 PM CDT Height 157.5 cm (5' 2) 03/24/2025 1:02 PM CDT Body Mass Index 21.77 03/24/2025 1:02 PM CDT Plan of Treatment Health Maintenance Due Date Last Done Comments Depression Screening 1960 Hepatitis C Screening 1960 DTaP/Tdap/Td Vaccine (1 - Tdap) 1973 Hepatitis B Screening 1980 Regular Well Visit/Exam 18-64 1980 Breast Cancer Screening-Mammogram 04/29/2025 04/29/2024, 04/12/2023 Influenza Vaccine (#1) 2025 Colon Cancer Screening-Colonoscopy 12/11/2034 12/11/2024, 09/02/2021, 07/21/2020, Additional history exists Zoster Vaccine Completed 09/24/2022, 05/27/2022 Covid-19 Vaccine Completed 09/20/2024, 12/2022, 10/20/2022, Additional history exists Colon Cancer Screening-CT Colonography Discontinued 12/11/2024, 09/02/2021, 07/21/2020, Additional history exists Colon Cancer Screening-DNA Stool Discontinued 12/11/2024, 09/02/2021, 07/21/2020, Additional history exists Colon Cancer Screening-FIT Discontinued 12/11, 09/02/2021, 07/21/2020, Additional history exists Colon Cancer Screening-Sigmoidoscopy Discontinued 12/11/2024, 09/02/2021, 07/21/2020, Additional history exists Pneumococcal vaccine <65 Aged Out No longer eligible based on patient's age to complete this topic Goals Goal Patient Goal Type Associated Problems Recent Progress Patient-Stated? Author CCM Chronic Pain Care Plan Chronic Care Management Worsening( 11:22 AM RECREATION SUPERINTENDENT) Dionna Rodgers, RADHA Note: Problem: Chronic Pain Goals: 1. Minimize further functional decline 2. Maximize quality of life 3. Control pain Strategies: - Activity/exercise program recommendation - Conservative stepwise pain medicine strategy with multi-disciplinary approach - Recommend healthy lifestyle strategies and compensatory methods as needed Medical Devices Implanted Type Area Watch Inspector Device Identifier Shelf Expiration Date Model / [...] Read RADHA (Appt Today, Awaiting Results) 03/21/2025 8:56 AM CDT Spondylosis of lumbar spine Lumbar pain Intervertebral disc disorder with radiculopathy of lumbar region COLONOSCOPY 12/11/2024 7:48 AM RECREATION SUPERINTENDENT from Last 3 Months or Most Recently Relevant to Health Maintenance Results * SCAN - RADIOLOGY/IMAGING (05/29/2025 2:01 PM CDT) Anatomical Region Laterality Modality Other us Iban Mandujano MD Final Result * CT [...] signed by: Aric Wang M.D. Pola Garcia IM CT PROCEDURES Final Result * MRI Lumbar [...] by: Aric Wang M.D. Pola Garcia DO [facility] MRI PROCEDURES Final Result * Colonoscopy (12/11/2024 7:48 AM RECREATION SUPERINTENDENT) Anatomical Region Laterality Modality Other Narrative Procedure Note Rip Morelos MD - 12/11/2024 7:48 AM CST ENDOSCOPY LAB Patient Name: Amee Okeefe Procedure Date: 12/11/2024 7:48 AM Date of : 1960 Admit Type: Outpatient Age: 64 Gender: Female Attending MD: Rip Morelos M.D. Room: [facility] ENDOSCOPY ROOM 04 Note Status: Finalized Procedure: [...] The scope was passed under direct vision.The [id number] was introduced through the anusand advanced to [...] following this procedure please call my officeat [phone] ([phone]) to speak to my nurses. After hours and evenings please call [phone] speak to the GI fellow instrumentation technologist. Please tell themthat Dr. Morelos did your procedure and that your were instructed to have the fellow call me or thephysician covering for me to discuss the management of your condition. If you have an urgent problem, please goto the nearest emergency room and have the ER doctorcall my office during the day or [facility] transfer ([phone]) center after hours and weekends to arrange admission or transfer to our facility. - Call my nurse Lindsay Burgess RN in the GI office at [phone] for your final pathology results in 7 days. Attending Participation: I personally performed the entire procedure. Electronically Signed By: Rip Morelos M.D. Rip Morelos M.D. 12/11/2024 8:10:07 AM Number of Addenda: 0 Note Initiated On: 12/11/2024 7:48 AM Rip Morelos MD ENDOSCOPY PROCEDURES Final Result from Last 3 Months or Most Recently Relevant to Health Maintenance Insurance [employer] [place] [employer] [place] [employer] [place] [employer] [place] Directives For more information, please contact: [phone] * Full Code (Latest Code Status on [...] 7:59 AM 07/21/2020 1:44 PM Care Teams Svp Monetization Relationship Specialty Start Date End Date Iban Mandujano MD PCP - General 01/04/17
--- OUTSIDE RECORDS SUMMARY | 2025-06-08 14:42 | XMS_ITS | Encounter Summary ---
Author Organization [facility] Address [address] [facility] [place] [address] Care Team Providers Care Stave Inspector Name Role Phone Iban Mandujano MD Primary Care Provider [phone] Encounter Details Date Type Department Care Team (Late st Contact Info) Description 03/19/2024 Lab Requisition [facility] - DermPath Lab [address] [place] [address] Judy Walker MD [address] [facility] [facility] [address] [place] [address] Social History Tobacco Use Types Packs/Day Years Used Date Smoking Tobacco: Never Assessed Comments Unknown Sex and Gender Information Value Date Recorded Sex Assigned at Not on file Legal Sex Female 2:06 PM CDT Gender Identity Not on file Sexual Orientation Not on file documented as of this encounter Plan of Treatment Not on file documented as of this encounter Procedures Procedure Name Priority Date/Time Associated Diagnosis Comments DERMATOPATHOLOGY Routine 03/19/2024 1:59 PM CDT documented in this encounter Results * DERMATOPATHOLOGY (03/19/2024 1:59 PM CDT) Case Report Dermatopathology Report Case: [id number] Authorizing Provider: Judy Walker MD Collected: 03/19/2024 01:59 PM Ordering Location: [facility] Physician [facility] - Received: 03/21/2024 09:32 AM DermPath Lab Pathologist: Tiffany Hidalgo MD Specimen: Skin, right hand 12:39 PM CDT DERMATOPATHOLOGY LABORATORY Final Diagnosis Specimen A. SKIN, right hand: HYPERPLASTIC (HYPERTROPHIC) ACTINIC KERATOSIS, LICHENOID (L57.0) 12:39 PM CDT DERMATOPATHOLOGY LABORATORY at 1239 CDT Clinical History R/o SCC 12:39 PM CDT DERMATOPATHOLOGY LABORATORY Gross Description Specimen A: Received is one formalin filled container labeled with the patient's name and designated right hand. The specimen consists of a shave biopsy measuring 8x6x2 mm. Jar 0. 12:39 PM CDT DERMATOPATHOLOGY LABORATORY Microscopic Description Specimen A. SKIN, right hand: There is focal parakeratosis. The lower half of the epidermis shows disorderly maturation of keratinocytes with nuclear pleomorphism. The dermis shows a band-like, chronic inflammatory infiltrate with occasional apoptotic keratinocytes and some basal vacuolar alteration. Additional deeper sections were obtained and reviewed. 12:39 PM CDT DERMATOPATHOLOGY LABORATORY Disclaimer An external and internal positive and negative controls are appropriate for the histochemical, immunohistochemical and immunofluorescence stain(s) in this case (if any), except where stated explicitly. The performance characteristics of the stain(s) cited in this report were developed and its performance characteristic determined by the Dermatopathology Laboratory at [facility], directed by Dr. Linden Hutchinson. These tests need not be, and therefore are not, approved by the [place] Food and Drug Administration. The tests are used for clinical purposes. Billing Codes Specimen Charges Stain Charges 93157 1 12:39 PM CDT DERMATOPATHOLOGY LABORATORY Embedded Images 12:39 PM CDT DERMATOPATHOLOGY LABORATORY Pathology/Cytolo gy TISSUE SPECIMEN FROM SKIN / Unknown 03/19/2024 1:59 PM CDT 03/21/2024 9:32 AM CDT us Judy Walker MD LAB - PATHOLOGY/CYTOLOGY OR DERABLES Final Result DERMATOPATHOLOGY LABORATORY [facility] - Department of Dermatology [address], [address] [phone] documented in this encounter Visit Diagnoses Not on filedocumented in this encounter Care Teams Stave Inspector Relationship Specialty Start Date End Date Iban Mandujano MD PCP - General 01/19/20 documented as of this encounter
== END 2025-06-08 14:41 | disposition home or self-care (01) ==
LOC: ANHIMG 14:41
PROVIDERS: PCP Internal Medicine; Visit Provider Obstetrics & Gynecology
DX: Z12.31 Encounter for screening mammogram for malignant neoplasm of breast (principal)
CPT/HCPCS: 77063; 77067